=== PATIENT | male | born 1990 | race Caucasian/White ===

== ENCOUNTER 2021-12-15 13:15 | Emergency (ER) | payer BC | END 2021-12-15 14:59 | disposition left against medical advice (07) | LOC: CSHERS 13:15 | DX: R09.81 Nasal congestion (principal); R19.7 Diarrhea, unspecified; R51.9 Headache, unspecified; R11.0 Nausea; F17.210 Nicotine dependence, cigarettes, uncomplicated | CPT/HCPCS: 99284 ==